=== PATIENT | female | born 1955 | race Caucasian/White ===

== ENCOUNTER 2021-02-23 22:56 | Emergency (ER) | payer BC ==
[~2021-02-23] VITALS: Ht 157.5 cm; Wt 97.0 kg
[2021-02-23] MEDS ORDERED: TETANUS, DIPHTHERIA, PERTUSSIS VAC/PF 0.5ML (>7YR OLD) IM ONE (23:30)
[2021-02-23] MEDS ORDERED: KETOROLAC 30MG/ML VIAL IM ONE (23:30)
[2021-02-24] MEDS ORDERED: ONDANSETRON HCL 4MG/2ML INJ IV ONE ×2 (03:15→04:45)
[2021-02-24] MEDS ORDERED: PROPOFOL 200MG/20ML VIAL IV ONE ×2 (03:15→04:45)
[2021-02-24] MEDS ORDERED: BACITRACIN ZINC OINT UDPKT TOP ONE (03:45)
[2021-02-24] MEDS ORDERED: IBUP-2029 MT (05:29)
[2021-02-24] MEDS ORDERED: HYDR-4346 MT (05:29)
[2021-02-24] MEDS ORDERED: HYDROCODONE/ACETAMINOPHEN 5/325MG TABLET PO ONE (05:30)
[2021-02-24 05:55] VITALS: BP 123/68
== END 2021-02-24 06:18 | disposition home or self-care (01) ==
LOC: ER 23:04
DX: S52.591A Other fractures of lower end of right radius, initial encounter for closed fracture (principal); I10 Essential (primary) hypertension; Z98.890 Other specified postprocedural states; W01.0XXA Fall on same level from slipping, tripping and stumbling without subsequent striking against object, initial encounter; Y93.89 Activity, other specified; Y92.520 Airport as the place of occurrence of the external cause; Y99.8 Other external cause status
CPT/HCPCS: 25605; 73090; 73100; 73110; 73130; 90471; 90715; 96372; 96374; 96376; 99152; 99285; J1885; J2405; J2704; 24650